=== PATIENT | male | born 1955 | race Caucasian/White ===

== ENCOUNTER → 2018-12-18 | Outpatient (CLI) | payer OTHER, SELFPAY ==
[2018-12-18 12:51] LABS: Anion Gap 6 (5-15); BUN 16 mg/dL (7-18); BUN/Creat Ratio 17.4 RATIO (10-20); Calcium,Total 8.9 mg/dL (8.5-10.1); Chloride 104 mmol/L (98-107); Cholesterol 204 mg/dL (200); Creatinine, Serum 0.92 mg/dL (0.70-1.30); EST Glomerular Filtration Rate 88 mL/min (>60); Est Glom Filt Rate - Afr Amer 106 mL/min (>60); Glucose 91 mg/dL (74-106); High Density Lipoprotein 59 mg/dL; Potassium 4.1 mmol/L (3.5-5.1); Sodium Level 140 mmol/L (136-145); Triglycerides 72 mg/dL; Very Low Density Lipoprotein 14 mg/dL (5-40)
== END | disposition home or self-care (01) ==
LOC: MTLAB 09:48
PROVIDERS: Family Provider Family Medicine; PCP Family Medicine; Referring Provider Family Medicine; Visit Provider Family Medicine
DX: Z13.1 Encounter for screening for diabetes mellitus (principal); Z13.220 Encounter for screening for lipoid disorders
CPT/HCPCS: 36415; 80048; 80061

== ENCOUNTER 2023-07-30 20:53 | Emergency (ER) | payer MEDICARE, SELFPAY ==
[2023-07-30 20:54] VITALS: PULSE 89; RESP 16; O2SAT 100
[2023-07-30 20:56] VITALS: BP 186/84; PULSE 90; RESP 16; TEMP 36.9; O2SAT 100; BMI 25.6
--- NOTE | 2023-07-30 21:17 | CT_ITS ---
We are attempting to reach an attending provider to discuss findings. An addendum with communication details will be sent when the communication is complete. STUDY: CT CERVICAL SPINE WITHOUT CONTRAST REASON FOR EXAM: Male, 68 years old. Injury/Pain RADIATION DOSAGE (If Supplied By Facility): CTDIvol = ( 16.70 ) mGy, DLP = ( 403.67 ) mGycm TECHNIQUE: High resolution transaxial imaging was performed without contrast material. Sagittal and coronal images were reconstructed. Individualized dose optimization techniques were used for this CT. COMPARISON: None FINDINGS: Normal craniovertebral junction. Normal anterior atlantoaxial articulation. Normal odontoid process. There is a fracture line noted in the right anterior base of the axis extending to the vertebral canal. Normal cervical lordosis. Normal vertebral bodies and posterior osseous elements. C2-3: Normal endplates. Normal disc height and morphology. Normal central canal and intervertebral neuroforamina. C3-4: Normal endplates. Normal disc height and morphology. Normal central canal. Facet hypertrophy and uncovertebral spurring narrowing the intervertebral neuroforamina, left more than right. C4-5: Normal endplates. Normal disc height and morphology. Normal central canal. Uncovertebral spurring slightly narrowing the right intervertebral neural foramen. C5-6: Spurring at the endplates. Narrowed disc height. Normal central canal. Uncovertebral spurring narrowing the intervertebral neuroforamina. C6-7: Spurring at the endplates. Narrowed disc height. Normal central canal. Uncovertebral spurring narrowing the intervertebral neuroforamina. C7-T1: Mild spurring of the endplates. Slightly narrowed disc height. Normal central canal and intervertebral neuroforamina. Normal visualized soft tissue structures. CT/Spine Cervical without Contras IMPRESSION: Degenerative changes of the cervical spine. There is a fracture line noted in the right anterior base of the axis extending to the vertebral canal. Electronically Signed: Hans Birmingham DO at 22:01 EDT ,
--- NOTE | 2023-07-30 21:17 | RAD_ITS ---
INDICATION: Injury/Pain EXAMINATION/TECHNIQUE: X-RAY - RIGHT XR Knee Complete 5 Views COMPARISON: FINDINGS: SOFT TISSUES: No soft tissue swelling or gas. No radiopaque foreign body. Mild suprapatellar effusion. BONES/JOINTS: No acute fracture or subluxation.. There is narrowing of the lateral femoral tibial compartment.. No sclerotic or destructive changes observed. RAD/Knee 4 or More Views IMPRESSION: Mild suprapatellar effusion. There is narrowing of the lateral femoral tibial compartment.. . Electronically Signed: Hans Birmingham DO at 23:16 EDT Reading Location ID and State: [facility] / [place] Tel [phone], Service support ,
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
[2023-07-30] MEDS: Morphine 4 MG/ML Syringe IV (22:46)
[2023-07-30] MEDS: Ondansetron 4 MG/2 ML Vial IV (22:46)
[2023-07-30] MEDS: 0.9% Normal Saline (1000mL) 1,000 ML 150 ML IV (22:51)
[2023-07-30 22:54] VITALS: BP 167/97; PULSE 89; RESP 14; O2SAT 97
[2023-07-30 23:00] LABS: Absolute Lymphocyte Count 1.54 X10^3/uL (0.83-4.51); Basophil# 0.04 X10^3/uL; Basophil% 0.4 % (0-1); Eosinophil# 0.08 X10^3/uL; Eosinophils% 0.8 % (0-5); Hematocrit 38.8 % (40-54); Hemoglobin 12.6 g/dL (13.0-16.5); Lymphocyte # 1.54 X10^3/ul (0.83-4.51); Lymphocyte % 14.7 % (19-41); Mean Corp Hgb Conc 32.5 g/dL (32-36); Mean Corpuscular Volume 92.4 fL (80-94); Mean Platelet Vol. 9.5 fl (6.2-12.0); Monocyte# 0.75 X10^3/uL; Monocyte% 7.2 % (0-10); NRBC Flagged by Analyzer 0 % (0-5); Neutrophil # 8.02 X10^3/uL (2.7-7.7); Neutrophil % 76.5 % (47-70); Platelet Count 167 K/mm3 (150-450); RBC Distribution Width CV 12.9 % (11.6-14.6); RBC Distribution Width SD 43.5 fl (35.1-43.9); White Blood Count 10.5 K/mm3 (4.4-11.0)
[2023-07-30 23:12] VITALS: BP 167/97; PULSE 89; RESP 14; TEMP 36.9; O2SAT 97
[2023-07-30 23:28] LABS: ALB/GLOB Ratio 0.8 RATIO (0.9-2.4); AST(SGOT) 17 U/L (15-37); Alanine Aminotransfer ALT/SGPT 16 U/L (16-61); Albumin, Serum 3.4 g/dL (3.2-5.0); Alkaline Phosphatase 81 U/L (45-117); Anion Gap 5 (5-15); BUN 24 mg/dL (7-18); BUN/Creat Ratio 20.5 RATIO (10-20); Chloride 106 mmol/L (98-107); Creatinine, Serum 1.17 mg/dL (0.70-1.30); EST Glomerular Filtration Rate 65 mL/min (>60); Est Glom Filt Rate - Afr Amer 79 mL/min (>60); Estimated Creatinine Clearance 60.66 ml/min; Glucose 115 mg/dL (74-106); Potassium 4.1 mmol/L (3.5-5.1); Protein, Total 7.4 g/dL (6.4-8.2); Sodium Level 139 mmol/L (136-145)
== END 2023-07-30 23:35 | disposition short-term general hospital (02) ==
PROVIDERS: Emergency Provider Emergency Medicine; Visit Provider Emergency Medicine
DX: S82.141A Displaced bicondylar fracture of right tibia, initial encounter for closed fracture (principal); S12.100A Unspecified displaced fracture of second cervical vertebra, initial encounter for closed fracture; M25.461 Effusion, right knee; S50.811A Abrasion of right forearm, initial encounter; S80.812A Abrasion, left lower leg, initial encounter; R03.0 Elevated blood-pressure reading, without diagnosis of hypertension; V53.5XXA Driver of pick-up truck or van injured in collision with car, pick-up truck or van in traffic accident, initial encounter
CPT/HCPCS: 72125; 73564; 80053; 85025; 96361; 96374; 96375; 99284; J2405

== ENCOUNTER → 2023-08-12 | Outpatient (CLI) | payer MEDICARE, SELFPAY ==
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
== END | disposition home or self-care (01) ==
PROVIDERS: PCP Family Medicine; Referring Provider Family Medicine; Visit Provider Family Medicine
DX: S82.209A Unspecified fracture of shaft of unspecified tibia, initial encounter for closed fracture (principal); X58.XXXA Exposure to other specified factors, initial encounter
CPT/HCPCS: 73590